=== PATIENT | female | born 1955 | race Two or more races ===

== ENCOUNTER → 2017-04-18 | Outpatient (CLI) | payer OTHER ==
[~2017-04-18] MED LIST: BP PILL
--- NOTE | ~2017-04-18 | MY29 ---
[facility] A Service of [facility] RADIOLOGY TEXT RESULTS PATIENT: RODRI FORRESTER LOCATION: [facility] : 57 UNIT #: [id number] AGE: [address]: ASHLIE DOOLEY SEX: F ORDER DR: [id number] [place], [place] [address] [id number] O MR#: [id number] Acc #: [id number] NAME: RODRI FORRESTER : 1955 SEX: F STUDY DATE/TIME: 04/18/2017 8:28 UNIT: [facility] ROOM: STUDY DESCRIPTION: MY LOIDA SCREENING W/ CAD BILAT Attending Physician: David Quiroga Referring Physician: David Quiroga Ordering Physician: David Quiroga Primary Care Physician: Ashleigh Damon M.D. MEDICAL IMAGING REPORT This report is preliminary unless electronic signature is present EXAM Bilateral Digital Screening Mammogram with CAD INDICATION Breast cancer screening. A 62 old asymptomatic female. No personal or family history of breast cancer. COMPARISON November 02, 2015, June 05, 2014, January 31, 2013, August 30, 2010 FINDINGS There are scattered fibroglandular tissues. No suspicious findings are present. IMPRESSION No mammographic evidence of malignancy. Annual screening mammography and clinical breast exam are recommended. A result letter will be sent to the patient. Patients over the age of 40 are entered into a reminder system with target due date for the next mammogram. BIRADS: 1 Negative Dictated by... Deng Hicks M.D. THIS IS AN ELECTRONICALLY VERIFIED REPORT [facility] A Service of [facility] RADIOLOGY TEXT RESULTS PATIENT: RODRI FORRESTER LOCATION: [facility] : 57 UNIT #: [id number] AGE: [address]: ASHLIE DOOLEY SEX: F ORDER DR: Deng Hicks M.D. at 04/22/2017 10:20 PM Jose TD: 04/18/2017 13:54 JOB #: [id number] MEDICAL IMAGING REPORT Page 1 of 1 COPY
== END | disposition home or self-care (01) ==
LOC: CWCC 08:09
DX: Z12.31 Encounter for screening mammogram for malignant neoplasm of breast (principal)
CPT/HCPCS: G0202

== ENCOUNTER 2017-04-25 17:16 | Emergency (ER) | payer OTHER ==
[~2017-04-25] VITALS: Ht 165.1 cm; Wt 90.3 kg
--- NOTE | ~2017-04-25 | CR172 ---
[facility] A Service of [facility] RADIOLOGY TEXT RESULTS PATIENT: RODRI FORRESTER LOCATION: [facility] : 57 UNIT #: [id number] AGE: [address]: Yesica Orantes APRN SEX: F ORDER DR: [id number] [facility] [address] [place], [place] [address] [id number] E MR#: [id number] Acc #: [id number] NAME: RODRI FORRESTER : 1955 SEX: F STUDY DATE/TIME: 04/25/2017 17:41 UNIT: [facility] ROOM: STUDY DESCRIPTION: CR Knee 3 Views Lt Attending Physician: Yesica Orantes A.P.R.N. Ordering Physician: [facility] Primary Care Physician: Ashleigh Damon M.D. MEDICAL IMAGING REPORT This report is preliminary unless electronic signature is present EXAM Left knee series 04/25/2017 COMPARISON STUDIES Right knee series 08/23/2013 HISTORY Left knee pain for 2 weeks, worse over the last 2 days. FINDINGS Three views of the left knee were obtained. Minimal spurs noted in the gluteofemoral and patellofemoral joints suggestive of arthritic change. No significant joint effusion, acute displaced fracture or dislocation is seen. Dictated by... Dafne Barragan M.D. THIS IS AN ELECTRONICALLY VERIFIED REPORT Dafne Barragan M.D. at 04/26/2017 1:26 PM CPR/pcl TD: 04/25/2017 21:05 JOB #: [id number] MEDICAL IMAGING REPORT Page 1 of 1 COPY
== END 2017-04-25 18:15 | disposition home or self-care (01) ==
LOC: CED 17:16 → CFTX 17:16
DX: M17.12 Unilateral primary osteoarthritis, left knee (principal); I10 Essential (primary) hypertension; Z91.041 Radiographic dye allergy status
CPT/HCPCS: 73562; 99283; J0696

== ENCOUNTER → 2017-05-07 | Outpatient (CLI) | payer OTHER ==
--- NOTE | ~2017-05-07 | MR103 ---
[facility] A Service of [facility] RADIOLOGY TEXT RESULTS PATIENT: RODRI FORRESTER LOCATION: [facility] : 57 UNIT #: [id number] AGE: [address]: Michelle Hernandez SEX: F ORDER DR: [id number] [facility] [address] [place], [place] [address] [id number] O MR#: [id number] Acc #: [id number] NAME: RODRI FORRESTER : 1955 SEX: F STUDY DATE/TIME: 05/07/2017 7:17 UNIT: [facility] ROOM: STUDY DESCRIPTION: MR Knee Wo Contrast Lt Attending Physician: Michelle Hernandez P.A.-C. Referring Physician: Michelle Hernandez P.A.-C. Ordering Physician: Michelle Hernandez P.A.-C. Primary Care Physician: Ashleigh Damon M.D. MRI CENTER REPORT This report is preliminary unless electronic signature is present. EXAM MRI of the left knee without contrast HISTORY 62-year-old female complains of left knee pain since March 2017, diffuse pain and swelling. No specific trauma. COMPARISON Left knee films 04/25/2017 FINDINGS Multiplanar multiecho imaging is performed of the lumbar spine utilizing a high field magnet dedicated protocol. Examination demonstrates early degenerative changes of the knee with developing marginal osteophytes lateral tibial plateau. No focal marrow edema. There is a moderate knee effusion with evidence of synovitis. No sizeable loose body. In the lateral compartment there is a degenerative tear of the posterior body segment posterior horn lateral meniscus with elements of both vertical tear at the midbody segment and longitudinal oblique tear posterior horn meniscus. No displaced meniscal fragment. Lateral compartment articular cartilage demonstrates mild thinning but no areas of high-grade chondromalacia. In the medial compartment there is thickening and increased signal within the posterior body segment posterior horn of the medial meniscus with signal abnormality at the root attachment suggesting a developing radial tear at the root attachment. Minimal medial meniscal extrusion. Medial compartment articular cartilage demonstrates minimal chondromalacia. In the patellofemoral compartment there is mild chondromalacia medial patellar facet. Trochlear cartilage unremarkable. Anterior and posterior cruciate ligaments appear intact. The collateral STS. [facility] A Service of [facility] RADIOLOGY TEXT RESULTS PATIENT: RODRI FORRESTER LOCATION: [facility] : 57 UNIT #: [id number] AGE: [address]: Michelle Hernandez SEX: F ORDER DR: ligaments and extensor mechanism unremarkable. Extraarticular soft tissues appear normal. IMPRESSION 1. Diffuse degeneration of the lateral meniscus with a degenerative tear or complex tear extending from midbody segment into the posterior horn of the meniscus. There are components of both vertical and longitudinal oblique tears but no displaced meniscal fragment. 2. Diffuse myxoid degeneration of the posterior body segment posterior horn medial meniscus with focal signal abnormality of the root attachment raises concern for developing radial tear but there is only minimal medial extrusion of the medial meniscus. 3. Early arthrosis of the knee predominantly involving the lateral compartment marginal osteophytes but no areas of high-grade chondromalacia. 4. Moderate knee effusion with synovitis. Persistent signal abnormality is seen along the popliteus tendon, extraarticular, measuring about 7 mm and could represent a small loose body. Dictated by... Rosario Vergara M.D. THIS IS AN ELECTRONICALLY VERIFIED REPORT Rosario Vergara M.D. at 05/08/2017 5:39 PM BARBARA/jarred TD: 05/08/2017 17:04 JOB #: [id number] MRI CENTER REPORT Page 1 of 1 COPY
== END | disposition home or self-care (01) ==
LOC: CMRI 06:41
DX: M94.262 Chondromalacia, left knee (principal); M25.462 Effusion, left knee; M65.862 Other synovitis and tenosynovitis, left lower leg; M17.12 Unilateral primary osteoarthritis, left knee
CPT/HCPCS: 73721